=== PATIENT | female | born 1995 | race African-American/Black ===

== ENCOUNTER 2018-08-18 23:57 | Emergency (ER) | payer OTHER ==
[~2018-08-18] VITALS: Ht 162.6 cm; Wt 97.1 kg
[2018-08-19] MEDS ORDERED: NKM (00:05)
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
[2018-08-19] MEDS ORDERED: IBUPROFEN600 MG ORAL (00:50)
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
--- NOTE | 2018-08-19 01:05 | NUR ---
ER Nurse Note: All orders completed per ERMD orders. Pt seen, treated, medically cleared for discharge by ERMD. Discharge instructions and prescriptions given with repeat verbazliaion by pt. Instructed pt to follow up with primary care provider within one week. Pt a&ox4, VSS, no signs of distress. Slint applied by stamping bench die maker. Pain meds given; tolerated well. ID band removed. Pt left with all belongings with steady gait via own transportation.
[2018-08-19 01:15] VITALS: BP 115/73
--- NOTE | 2018-08-19 13:54 | Diagnostic Imaging Report ---
Indication: Right hand pain Findings: 3 views of the right hand were obtained. Normal bony mineralization and alignment are demonstrated. No acute fractures, erosions, or periosteal reaction are seen. Soft tissues are unremarkable. Impression: No acute findings.
== END 2018-08-19 01:05 | disposition home or self-care (01) ==
LOC: EMR 08-19 00:15
DX: S60.221A Contusion of right hand, initial encounter (principal); W51.XXXA Accidental striking against or bumped into by another person, initial encounter; Y92.9 Unspecified place or not applicable
CPT/HCPCS: 29125; 99283